=== PATIENT | female | born 1980 | race Caucasian/White ===

== ENCOUNTER 2021-04-27 12:38 | Emergency (ER) | payer OTHER ==
[2021-04-27 14:59] LABS: BASOPHIL 0.7 % (0-2); EOSINOPHIL 1.2 % (0-5); HCT 48.6 % (37.0-47.0); HGB 16.3 g/dl (12.5-16.0); LYMPHOCYTE 18.6 % (15-48); MCH 30.7 pg (25.0-31.0); MCHC 33.5 g/dL (32.0-36.0); MCV 91.5 fL (78.0-100.0); MONOCYTE 6.6 % (0-12); MPV 10.6 fL (6.0-9.5); NEUTROPHIL 72.7 % (41-80); NRBC 0; PLT 245 K/uL (150-400); RBC 5.31 M/uL (4.20-5.40); RDW 11.9 % (11.5-14.0); WBC 8.4 K/uL (4.0-10.5)
[2021-04-27 15:29] LABS: BUN 13 mg/dL (7-18); BUN/CREAT RATIO (CALC) 15.9 RATIO; CHLORIDE 102 mmol/L (98-107); CO2 (BICARBONATE) 30 mmol/L (21-32); CREATININE 0.82 mg/dL (0.51-0.95); GLUCOSE 107 mg/dL (74-106); POTASSIUM 4.7 mmol/L (3.5-5.1)
[2021-04-27 15:37] LABS: INFLUENZA A NAA NEGATIVE (NEGATIVE)
[2021-04-27 15:45] LABS: CORONAVIRUS 2019 SARS-COV-2 POSITIVE (NEGATIVE)
[2021-04-27] MEDS ORDERED: VENTOLIN HFA IN18 GM INH (16:23)
[2021-04-27] MEDS ORDERED: MEDROL 4MG DOSEP4 MG PO (16:23)
== END 2021-04-27 17:22 | disposition home or self-care (01) ==
LOC: FER 12:38
PROVIDERS: Nurse Practitioner Family
DX: U07.1 COVID-19 (principal); I10 Essential (primary) hypertension; Z79.899 Other long term (current) drug therapy
CPT/HCPCS: 36415; 71045; 80048; 84484; 85025; 87880; 93005; U0002